=== PATIENT | female | born 1925 | race Caucasian/White ===

== ENCOUNTER 2017-06-26 07:03 | Day surgery (SDC) | payer OTHER ==
[2017-06-21 12:57] VITALS: BMI 23.3
[2017-06-26] MEDS ORDERED: ACETAMINOPHEN 500 MG TABLET (FP) PO PRN (08:23)
[2017-06-26] MEDS ORDERED: oxyCODONE HCL 5 MG TABLET PO PRN (10:23)
[2017-06-26] MEDS ORDERED: LACTATED RINGERS SOLUTION 1,000 ML IV SCH (10:30)
[2017-06-26] MEDS ORDERED: ACETAMINOPHEN 500 MG TABLET (FP) ONE (10:43)
[2017-06-26] MEDS ORDERED: ONDANSETRON 4 MG/2 ML VIAL IVPUSH PRN (10:59)
[2017-06-26 11:13] VITALS: TEMP 98
[2017-06-26] MEDS ORDERED: LIDOCAINE 1%/EPI 1:100000 (20 ML MULTI DOSE VIAL) ONE (12:04)
[2017-06-26] MEDS ORDERED: BUPIVACAINE HCL/PF 0.5% (5MG/ML) 10 ML VIAL ONE (12:04)
[2017-06-26] MEDS ORDERED: BACITRACIN 3.5 GM OPTHALMIC OINT TUBE ONE (12:04)
[2017-06-26] MEDS ORDERED: POVIDONE-IODINE 5% OPHTHALMIC PREP 30 ML SOLUTION ONE (12:04)
[2017-06-26 12:13] VITALS: BP 154/60; PULSE 56
--- NOTE | 2017-06-26 14:16 | OP ---
DATE OF OPERATION: 06/26/2017 PREOPERATIVE DIAGNOSES: 1. Entropion, left lower lid with epiphora. 2. Ectropion, laxity, right lower lid with epiphora. 3. Inferior nasal conjunctival chalasis, both eyes. 4. Partial nasolacrimal duct obstruction, both eyes. POSTOPERATIVE DIAGNOSES: 1. Entropion, left lower lid with epiphora. 2. Ectropion, laxity, right lower lid with epiphora. 3. Inferior nasal conjunctival chalasis, both eyes. 4. Partial nasolacrimal duct obstruction, both eyes. PROCEDURE: 1. Lateral tarsal strip, left lower lid. 2. Transconjunctival plication of retractors, left lower lid. 3. Partial-thickness orbicularis flap excision, left lower lid. 4. Excision of conjunctival chalasis, left inferior fornix. 5. Lateral tarsal strip, right lower lid. 6. Excision of inferonasal conjunctival chalasis, right. SURGEON: Ty Spaulding MD ANESTHESIA: Local sedation. COMPLICATIONS: None ESTIMATED BLOOD LOSS: 2-3 mL DESCRIPTION OF OPERATION: Patient brought to the operating room and placed on the operating room table. Vital signs were monitored by Anesthesia. Tetracaine was placed in both eyes. Lateral canthal lines were marked bilaterally. Patient was given intravenous sedation. Next, a 50/50 mixture of 2% Xylocaine to 1:100,000 epinephrine and 0.5% Marcaine was injected subcutaneously in the left canthus, down to the periosteum, lateral third of the upper and lower lids and inferonasally in the area of conjunctival chalasis, both eyes. The patient was prepped and draped in the usual sterile fashion, exposing both eyes. Left side was approached first. Lateral canthal incision was made with a 15 blade through skin and subcutaneous tissue. This was carried down to the orbital rim with a Dallas needle. Inferior hardy and lateral canthal tendon were from the orbital rim with sharp dissection. It was overlapped at the orbital rim dino with a sterile marking pen and divided into an anterior and posterior lamella. The anterior lamella was excised. The posterior lamella was denuded of epithelium posteriorly and superiorly with a number 11 blade and Serina scissors and released from the retractor superiorly, creating a tarsal strip. The tarsal strip was then reattached to the orbital rim at the junction with the superior hardy of the lateral canthal tendon with a double-armed 5-0 Prolene reinforced with 6-0 Vicryl lasso suture. The Prolene was passed through the orbital rim but was not tied at this point. Next, a 4-0 silk retraction suture was passed from the central lid margin. Lid was everted over Desmarres retractor. Transconjunctival incision was made at the base of the tarsus through conjunctivae and retracted, exposing a thin orbicularis muscle, and the retractors were allowed to recess away from the tarsus, exposing the postorbicularis surface. The tarsus was then from the pretarsal orbicularis and punctum to the newly-created lateral canthus. Partial-thickness orbicularis strip was removed at the inferior edge of the tarsus to create a fibrous adhesion, and the retractors were then plicated to the anterior-inferior tarsus with 4 interrupted 6-0 Vicryl sutures, plicating and reattaching the retractors of the lower lid to the anterior-inferior tarsus and closing the conjunctivae with the same suture. All of these sutures were buried. The lateral canthal angles were now reformed with a 5-0 chromic to the wilder line of the upper and lower lid in buried fashion. The Prolene was now placed on stretch to approximate the canthus and the area of conjunctival chalasis. Next, the punctum was identified. The punctum was widely dilated with a punctal dilator, and an inferior conjunctival chalasis was excised with Serina scissors involving part of the inferior forniceal conjunctivae and the inferior plica. Cautery was used for hemostasis and contracture. The Prolene was now tied, reattaching the tarsal strip to the orbital rim. The subcutaneous tissues were closed with 5-0 chromic, and the skin was closed with interrupted or running 6-0 plain suture after antibiotic irrigation. Attention was turned to the right eye, and a lateral canthal incision was made with a 15 blade through skin and subcutaneous tissue. This was carried down to the orbital rim with a Dallas needle. The inferior hardy of the lateral canthal tendon was from the orbital with sharp dissection. Lid was overlapped, marked with sterile marking pen, divided, the anterior and posterior lamella. The anterior lamella was excised. The posterior lamella with posteriorly and superiorly. Retractors released. The lateral tarsal strip which had been created was sutured to the orbital rim at the junction with the superior hardy of the lateral canthal tendon with a double-armed 5-0 Prolene suture, reinforced with a 6-0 Vicryl lasso suture. at the lateral canthal angle was performed with a 5-0 chromic at the wilder line of the upper and lower lid in a buried fashion, so the knot would be buried in the lateral canthus. The Prolene was placed on stretch, demonstrating where the conjunctival chalasis existed relative to the punctum. The punctum was widely dilated with a punctal dilator. The excess conjunctival tissue in the inferior fornix and on the inferior plica was excised with Serina scissors, and Dallas needle was used for contracture and hemostasis of the tissue. The tarsal strip was then reattached to the orbital rim by tying the Prolene. The deep muscular tissues were closed with 5-0 chromic, and the skin was closed after antibiotic irrigation with interrupted 6-0 Prolene suture. Bacitracin was placed in the inferior fornix of both eyes and the lateral canthus and other lateral canthus sutures, and the patient was taken to recovery room in stable condition. TY SPAULDING M.D. [id number]
== END 2017-06-26 12:10 | disposition home or self-care (01) ==
LOC: FASU 07:03
PROVIDERS: ATTEND Ophthalmology
PROC: 08BQ0ZZ Excision of Right Lower Eyelid, Open Approach (ICD-10-PCS; 2017-06-26)
PROC: 08BTXZX Excision of Left Conjunctiva, External Approach, Diagnostic (ICD-10-PCS; 2017-06-26)
PROC: 08BSXZX Excision of Right Conjunctiva, External Approach, Diagnostic (ICD-10-PCS; 2017-06-26)
PROC: 08BR0ZZ Excision of Left Lower Eyelid, Open Approach (ICD-10-PCS; principal; 2017-06-26 09:18)
DX: H02.002 Unspecified entropion of right lower eyelid (principal); H02.005 Unspecified entropion of left lower eyelid; H04.203 Unspecified epiphora, bilateral; H44.3 Other and unspecified degenerative disorders of globe; H04.51 Dacryolith
CPT/HCPCS: 94760